=== PATIENT | female | born 1985 | race American Indian/Alaskan Native ===

== ENCOUNTER 2019-10-09 13:30 | Emergency (ER) | payer MEDICAID ==
[2019-10-09 15:14] VITALS: BP 114/59
--- NOTE | 2019-10-09 16:21 | XRay Report ---
XR spine lumbosacral 2-3V INDICATION / CLINICAL INFORMATION: back pain. COMPARISON: None available. FINDINGS: BONES/JOINT(S): No acute fracture or subluxation. No significant degenerative changes. SOFT TISSUES: No significant abnormality. ADDITIONAL FINDINGS: None. Signer Name: Db Dutton MD Signed: 10/09/2019 4:17 PM Workstation Name: [id number]
--- NOTE | 2019-10-09 16:37 | Emergency Department Report ---
HPI - General Chief Complaint: Back Pain/Injury Time Seen by Provider: 10/09/19 15:15 - HPI HPI: 33-year-old -Stateless female presents to the emergency department with a complaint of some low back pain after falling out of her bathtub and onto the f ian on Wednesday, 2 days ago. The patient says she was having some intermittent back pains prior to this happening but it has worsened since. Sometimes the pain will radiate down her right buttock and right leg. She denies any problems with bowel or bladder, numbness or paresthesias or any neurological deficits. She has been ambulating without any difficulty. No past medical history. She has not taken anything for her symptoms prior to presentation. She denies hitting her head or any loss of consciousness. ED Past Medical Hx - Past Medical History Previous Medical History?: No - Surgical History Past Surgical History?: Yes Hx Breast Surgery: Yes (reduction 2002) - Social History Smoking Status: Never Smoker Substance Use Type: None - Medications Home Medications: Home Medications Medication Instructions Recorded Confirmed Last Taken Type Cyclobenzaprine [Flexeril] 10 mg PO TID PRN #12 tablet 10/09/19 Unknown Rx Ibuprofen [Motrin 800 MG tab] 800 mg PO Q8HR PRN #20 tablet 10/09/19 Unknown Rx ED Review of Systems ROS: Stated complaint: BACKACHE/FELL OUT WEDNESDAY Other details as noted in HPI Comment: All other systems reviewed and negative Constitutional: denies: chills, fever Respiratory: denies: shortness of breath Cardiovascular: denies: chest pain Gastrointestinal: denies: abdominal pain Genitourinary: denies: dysuria, discharge Musculoskeletal: back pain, myalgia Neurological: denies: headache, weakness, numbness, paresthesias Physical Exam - Physical Exam Vital Signs: Vital Signs 10/09/19 15:12 Temperature 99.2 F Pulse Rate 78 Respiratory 18 Rate Blood Pressure 114/59 O2 Sat by Pulse 100 Oximetry Physical Exam: GENERAL: The patient is well-developed well-nourished. HEENT: Normocephalic. Atraumatic. Patient has moist mucous membranes. EYES: Extraocular motions are intact. NECK: Supple. Trachea is midline. CHEST/LUNGS: Clear to auscultation. There is no respiratory distress noted. HEART/CARDIOVASCULAR: Regular. There is no tachycardia. There is no murmur. ABDOMEN: There is no abdominal distention. SKIN:Skin is warm and dry. . NEURO: The patient is awake, alert, and oriented. The patient is cooperative. The patient has no focal neurologic deficits. Normal speech. MUSCULOSKELETAL: There is no tenderness or deformity. There is no limitation range of motion. There is no evidence of acute injury. BACK: There is both midline and bilateral paraspinal lumbar tenderness to palpation but no step-off or deformity. ED Course Vital Signs 10/09/19 15:12 Temperature 99.2 F Pulse Rate 78 Respiratory 18 Rate Blood Pressure 114/59 O2 Sat by Pulse 100 Oximetry ED Medical Decision Making - Radiology Data Radiology results: report reviewed XR spine lumbosacral 2-3V INDICATION / CLINICAL INFORMATION: back pain. COMPARISON: None available. FINDINGS: BONES/JOINT(S): No acute fracture or subluxation. No significant degenerative changes. SOFT TISSUES: No significant abnormality. ADDITIONAL FINDINGS: None. - Medical Decision Making This patient presents with some low back pain with some radiation down the right leg has been going on since she fell out of the bathtub. However she says that she was having some issues with some low back pain even prior to this. An x-ray was done that does not show any fracture, subluxation, or any other acute process. She denies any problems with bowel or bladder, numbness or paresthesias or any neurological deficits. She appears low suspicion for any of the emergent back conditions such as cauda equina, cord compression syndrome, or epidural abscess. Patient was seen ambulatory in the emergency department and both appears and feels stable. She has been given a referral for local orthopedists and has been instructed to return to the emergency Department with any worsening of her symptoms or any acute distress. - Differential Diagnosis lumbar contusion, fracture, sciatica, muscle spasm/sprain Critical Care Time: No Critical care attestation.: If time is entered above; I have spent that time in minutes in the direct care of this critically ill patient, excluding procedure time. ED Disposition Clinical Impression: Back pain Qualifiers: Back pain location: low back pain Chronicity: unspecified Back pain laterality: bilateral Sciatica presence: with sciatica Sciatica laterality: sciatica of right side Qualified Code(s): M54.41 - Lumbago with sciatica, right side Sciatica Qualifiers: Laterality: right Qualified Code(s): M54.31 - Sciatica, right side Fall Qualifiers: Encounter type: initial encounter Qualified Code(s): W19.XXXA - Unspecified fall, initial encounter Disposition: TO HOME OR SELFCARE Is pt being admited?: No Condition: Stable Instructions: Sciatica (ED), Back Pain (ED) Additional Instructions: I am given you a referral for some local primary care physicians. I am also giving you a referral for 2 different local orthopedic physicians/groups, Dr. Helton and Chiki, to follow up regarding your back pain and possible sciatica. Return to the emergency Department with any worsening of your symptoms or any acute distress. You have been prescribed a muscle relaxer that can be sedating. Therefore, this medication cannot be taken prior to driving, working, being responsible for children, and cannot be mixed with alcohol of any quantity. Prescriptions: Cyclobenzaprine [Flexeril] 10 mg PO TID PRN #12 tablet PRN Reason: Muscle Spasm Ibuprofen [Motrin 800 MG tab] 800 mg PO Q8HR PRN #20 tablet PRN Reason: Pain , Severe (7-10) Referrals: DEMARCO ESTEVEZ MD [Staff Physician] - 3-5 Days GWEN DIAZ MD [Staff Physician] - 3-5 Days LIBAN HELTON MD [Staff Physician] - 3-5 Days [facility] [Provider Group] - 3-5 Days [facility] [Outside] - 3-5 Days Forms: Work/School Release Form(ED) Time of Disposition: 16:38
== END 2019-10-09 15:30 | disposition home or self-care (01) ==
LOC: ED 13:30
DX: M54.41 Lumbago with sciatica, right side (principal); Z79.899 Other long term (current) drug therapy; Z98.890 Other specified postprocedural states; W18.2XXA Fall in (into) shower or empty bathtub, initial encounter; Y93.89 Activity, other specified; Y92.89 Other specified places as the place of occurrence of the external cause; Y99.8 Other external cause status
CPT/HCPCS: 72100; 99283